=== PATIENT | male | born 1950 | race American Indian/Alaskan Native ===

== ENCOUNTER 2019-01-27 10:13 | Emergency (ER) | payer MEDICARE ==
[2019-01-27 10:27] VITALS: BP 124/71
--- NOTE | 2019-01-27 10:37 | Emergency Department Report ---
ED Eye Problem HPI - General Chief complaint: Eye Problems Stated complaint: LFT EYE VISION BLURRY Time Seen by Provider: 01/27/19 10:33 Source: patient Mode of arrival: Ambulatory Limitations: No Limitations - History of Present Illness Initial comments: 68-year-old male was working on a car and states he accidentally got freon in his eyes, patient states mostly the left eye. Patient reports it was less than shot glass full of freon. Patient reports he irrigated his eyes 3 times prior to ED arrival. He denies any burning, pain, or discharge. Patient reported only mild blurred vision. MD chief complaint: vision change -: hour(s) (1) Onset Description: sudden Location: both eyes (mostly the left eye) If Injury: chemical exposure Eye Symptoms: blurry vision Severity: mild Consistency: constant Treatments Prior to Arrival: irrigated eye - Related Data Previous Rx's Medication Instructions Recorded Last Taken Type Erythromycin [Erythromycin Ophth 1 applic OU 6XD 3 Days #3.5 gm 01/27/19 Unknown Rx Oint] Allergies Allergy/AdvReac Type Severity Reaction Status Date / Time No Known Allergies Allergy Unverified 01/27/19 10:24 ED Review of Systems ROS: Stated complaint: LFT EYE VISION BLURRY Other details as noted in HPI Comment: All other systems reviewed and negative Eyes: other (reports blurred vision). denies: eye pain, eye discharge ED Past Medical Hx - Past Medical History Hx Hypertension: Yes Additional medical history: "heart condition" - Surgical History Past Surgical History?: No - Medications Home Medications: Home Medications Medication Instructions Recorded Confirmed Last Taken Type Erythromycin [Erythromycin Ophth 1 applic OU 6XD 3 Days #3.5 gm 01/27/19 Unknown Rx Oint] ED Physical Exam - General Limitations: No Limitations General appearance: alert, in no apparent distress - Head Head exam: Present: atraumatic, normocephalic - Eye Eye exam: Present: normal appearance, PERRL, EOMI, conjunctival injection Pupils: Present: normal accommodation - ENT ENT exam: Present: mucous membranes moist - Neck Neck exam: Present: normal inspection - Respiratory Respiratory exam: Present: normal lung sounds bilaterally. Absent: respiratory distress - Cardiovascular Cardiovascular Exam: Present: regular rate, normal rhythm - GI/Abdominal GI/Abdominal exam: Absent: distended - Extremities Exam Extremities exam: Present: normal inspection - Neurological Exam Neurological exam: Present: alert, oriented X3 - Psychiatric Psychiatric exam: Present: normal affect, normal mood - Skin Skin exam: Present: warm, dry, intact, normal color ED Course Vital Signs 01/27/19 10:26 Temperature 97.6 F Pulse Rate 65 Respiratory 16 Rate Blood Pressure 124/71 [Right] O2 Sat by Pulse 98 Oximetry - Reevaluation(s) Reevaluation #1: 01/27/19 11:44 pH is 7 in each eye. No abrasions present w/ [place] Lamp testing ED Medical Decision Making - Medical Decision Making - eyes irrigated here in ED with saline, Vernon lens - pH is normal - [place] exam normal - pt no longer reports any blurred vision - erythromycin ointment given - outpt f/u advised - Differential Diagnosis chemical exposure, corneal abrasion, chemical burn Critical care attestation.: If time is entered above; I have spent that time in minutes in the direct care of this critically ill patient, excluding procedure time. ED Disposition Clinical Impression: Chemical exposure of eye Disposition: DC-01 TO HOME OR SELFCARE Is pt being admited?: No Condition: Stable Instructions: Chemical Eye Hunter (ED) Prescriptions: Erythromycin [Erythromycin Ophth Oint] 1 applic OU 6XD 3 Days #3.5 gm Referrals: ABHISHEK MINOR MD [Staff Physician] - 3-5 Days Time of Disposition: 11:51
[2019-01-27] MEDS ORDERED: NACL 0.9% 1000 ML 1,000 ML ONE (10:54)
[2019-01-27] MEDS ORDERED: TETRACAINE 0.5% ONE (10:56)
[2019-01-27] MEDS ORDERED: FUL-GLO OP ONE ×2 (10:58→11:34)
[2019-01-27] MEDS ORDERED: TETRACAINE 0.5% OU PRN (11:01)
== END 2019-01-27 12:12 | disposition home or self-care (01) ==
LOC: ED 10:13
DX: H57.89 Other specified disorders of eye and adnexa (principal); I10 Essential (primary) hypertension
CPT/HCPCS: 99283; J7030